=== PATIENT | male | born 2000 | race Hispanic/Latino ===

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

== ENCOUNTER → 2023-05-11 | Emergency (ER) | payer SELFPAY ==
[~2023-05-11] MED LIST: AMOX/K CLAV 875 MG TAB ONE; HYDROCODONE/APAP 5/325 MG TAB ONE
--- OUTSIDE RECORDS SUMMARY | 2023-05-11 22:48 | XMS REPORT | Continuity of Care Document ---
Author Name Unknown Address [address] [facility] [place] [address] [facility] thconnect Address [address] [facility] [address] [place] [address] Care Team Providers Care Hearing Care Practitioner Name Role Phone PCP, PATIENT DOES NOT HAVE A Primary Care Physic sherman Unavailable ELE MACARIO Attending Clinician Unavailabl e Doctor Unassigned, [place] Attending Clinician U MIRACLE Gutierrez Attending Clinician Unavail able DIMITRI PAZ Attending Clinician Unavailable Dimitri Paz MD Attending Clinician Payers Payer Name Policy Type Policy Number Effective Date Expirati on Date Source [employer] MEDICAID [id number] 2018 00:00:00 Problems Condition Name Condition Details Condition Category Status Onset Date Resolution Date Last Treatment Date Treating Clinician Comments Source 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 Disease Active 05-17 00:00: 00 [facility] Closed displaced fracture of base of fifth metacarpal bone of right hand with malunion Closed displaced fracture of base of fifth metacarpal bone of right hand with malunion Disease Active 05-17 00:00: 00 [facility] Allergies, Adverse Reactions, Alerts Allergy Name Allergy Type Status Severity Reaction(s) Onset Date Inactive Date Treating Clinician Comments Source NO KNOWN ALLERGIE S Drug Class Active [facility] Social History Social Habit Start Date Stop Date Quantity Comments Source Exposure to SARS-CoV-2 (event) [facility] sure [facility] 2000 [facility]00 2000 00:00:00 [facility] Smoking Status Start Date Stop Date Source Unknown if ever smoked [facility] Medications Ordered Medication Name Filled Medication Name Start Date Stop Date Current Medication? Ordering Clinician Indication Dosage Frequency Signature (SIG) Comments Components Source No known medications 05-17 16:51: 18 No [facility] No known medications [facility] No [facility] No known medications No Un rachana [facility] No known medications [facility] No Un rachana [facility] Vital Signs Vital Name Observation Time Observation Value Comments S ourariana Systolic blood pressure 2020-05-17 21:30:00 104 mm[Hg] [facility] Diastolic blood pressure 2020-05-17 21:30:00 51 mm[Hg] [facility] Heart rate 2020-05-17 21:30:00 63 /min [facility] Body temperature 2020-05-17 21:30:00 36.89 Bernice [facility] Respiratory rate 2020-05-17 21:30:00 16 /min [facility] Body height 2020-05-17 21:30:00 165.1 cm [facility] Body weight 2020-05-17 21:30:00 95.618 kg [facility] BMI 2020-05-17 21:30:00 35.08 kg/m2 [facility] Procedures Procedure Date / Time Performed Performing Clinicia n Source REFERRAL- REQUEST/RESPONSE 2021-02-12 05:01:00 Doctor Unassigned, [place] [facility] XR WRIST 3+ VW LEFT 2020-05-17 21:19:48 Dimitri Paz [facility] XR WRIST 3+ VW RIGHT 2020-05-17 21:19:00 Trever Paz [facility] Encounters Start Date/Time End Date/Time Encounter Type Admission Type Attending Clinicians Care Facility Care Department Encounter ID Source 2022-12-08 10:52:05 2022-12-08 10:52:05 Outpatient [facility] [id number] Jerman Werner 2021-03-11 10:40:00 2021-03-11 10:40:00 Outpatient ELE ESCALERA [facility] [id number] [facility] 2021-02-12 00:00:00 2021-02-12 00:00:00 Orders Only Doctor Unassigned, [place] [facility] [id number] [facility] 2020-10-11 13:00:00 2020-10-11 13:00:00 Outpatient MIRACLE WALTERS [facility] [id number] [facility] 2020-05-21 00:00:00 2020-05-21 00:00:00 Outpatient DIMITRI SCHROEDER [facility] [id number] [facility] 2020-05-17 15:02:38 2020-05-17 23:59:00 Hospital Encounter [facility] 1..[id number] [facility] 2020-05-17 15:02:38 2020-05-17 23:59:00 Outpatient DIMITRI SCHROEDER [facility] [id number] [facility] 2020-05-17 15:02:14 2020-05-17 23:59:00 Hospital Encounter Dimitri Paz [facility] [id number] [facility] 2020-05-17 15:22:04 2020-05-17 15:37:04 [facility] [id number] [facility] Results Test Description Test Time Test Comments Results Resul t Comments Source XR WRIST 3+ VW RIGHT 2020-05-03 5 22:04:51 FINDINGS/IMPRESSIO N: Radiographs of the bilateral wrists demonstrate cortical irregularity anddeformity involving the bases of the fourth and fifth metacarpals on theright side, in which fractures of indeterminate age are of concern.Clinical correlation is recommended. Otherwise, no acute fractures or dislocations. Joint spaces are preserved.Alignmen t is within normal limits. The soft tissues are unremarkable. Preliminary Report Dictated by Resident: Alan Pizarro MD., have reviewed this study and agree with theabove report.EXAM: XR WRIST 3+ VW LEFT, XR WRIST 3+ VW RIGHT HISTORY: Pain in wrist, unspecified laterality [M25.539 (ICD-10-CM)] COMPARISON: None. [facility], Radiant Results Inft User - 05/17/2020 4:06 PM CSTEXAM: XR WRIST 3+ VW LEFT, XR WRIST 3+ VW RIGHTHISTORY: Pain in wrist, unspecified laterality [M25.539 (ICD-10-CM)]COMPAR MATTHEW: None.IMPRESSIONFIN DINGS/IMPRESSION: Radiographs of the bilateral wrists demonstrate cortical irregularity anddeformity involving the bases of the fourth and fifth metacarpals on theright side, in which fractures of indeterminate age are of concern.Clinical correlation is recommended.Otherw ise, no acute fractures or dislocations. Joint spaces are preserved.Alignmen t is within normal limits. The soft tissues are unremarkable.Preli minary Report Dictated by Resident: Alan Major MD., have reviewed this study and agree with theabove report. [facility] XR WRIST 3+ VW LEFT 2020-05-03 5 22:04:51 FINDINGS/IMPRESSIO N: Radiographs of the bilateral wrists demonstrate cortical irregularity anddeformity involving the bases of the fourth and fifth metacarpals on theright side, in which fractures of indeterminate age are of concern.Clinical correlation is recommended. Otherwise, no acute fractures or dislocations. Joint spaces are preserved.Alignmen t is within normal limits. The soft tissues are unremarkable. Preliminary Report Dictated by Resident: Alan Pizarro MD., have reviewed this study and agree with theabove report.EXAM: XR WRIST 3+ VW LEFT, XR WRIST 3+ VW RIGHT HISTORY: Pain in wrist, unspecified laterality [M25.539 (ICD-10-CM)] COMPARISON: None. [facility], Radiant Results Inft User - 05/17/2020 4:06 PM CSTEXAM: XR WRIST 3+ VW LEFT, XR WRIST 3+ VW RIGHTHISTORY: Pain in wrist, unspecified laterality [M25.539 (ICD-10-CM)]COMPAR MATTHEW: None.IMPRESSIONFIN DINGS/
--- NOTE | 2023-05-11 22:56 | EDPHYS ---
Physician Documentation [facility] Name: Zak Godfrey Age: 22 yrs Sex: Male : 2000 Arrival Date: 05/11/2023 Time: 22:44 Bed Waiting Private MD: ED Physician Scot Rosenberg HPI: 05/11 23:01 This 22 yrs old Male presents to ER via Ambulatory with complaints of kb Congestion, Ear Pain, Drainage From Ear, Cough. 23:01 Pt is a 22 year old male who presents with sore throat and bilateral ear pain. States kb he has had cough, congestion, sore throat and fever for 4 days and most of the symptoms have resolved. Still has the sore throat and today developed bilateral ear pain which prompted his ER visit. . Historical: - Allergies: 22:52 No Known Allergies; rv - PMHx: 22:52 None; rv - PSHx: 22:52 None; rv - Immunization history:: Adult Immunizations up to date. - Social history:: Smoking status: Patient denies any tobacco usage or history of. ROS: 23:00 Constitutional: Negative for fever, chills, and weight loss, kb 23:00 ENT: Positive for ear pain, sore throat, 23:00 All other systems are negative, Exam: 23:00 Constitutional: This is a well developed, well nourished patient who is awake, alert, kb and in no acute distress. Head/Face: Normocephalic, atraumatic. Cardiovascular: Regular rate Respiratory: Respirations even and unlabored. No increased work of breathing. Talking in full sentences Abdomen/GI: Soft, non-tender. No distention Skin: Warm, dry with normal turgor. Normal color. MS/ Extremity: Pulses equal, no cyanosis. Neurovascular intact. Full, normal range of motion. Neuro: Awake and alert, GCS 15, oriented to person, place, time, and situation. Moves all extremities. Normal gait. 23:00 ENT: External ear(s): are unremarkable, Ear canal(s): are normal, TM's: bulging, bilaterally, erythema, that is moderate, bilaterally, Posterior pharynx: is normal, Vital Signs: 22:51 BP 144 / 100; Pulse 83; Resp 17; Temp 98.4; Pulse Ox 100% ; Weight 95.25 kg; Height 5 rv ft. 7 in. ; 22:51 Body Mass Index 32.89 (95.25 kg, 170.18 cm) rv MDM: 22:51 Patient medically screened. kb 23:01 Differential diagnosis: otitis media, otitis externa, ruptured TM, foreign body, acute kb otalgia. Data reviewed: vital signs, nurses notes. Test considered but Not performed: Labs: flu and covid tests considered, but result would not change plan of care. Counseling: I had a detailed discussion with the patient and/or guardian regarding the historical points, exam findings, and any diagnostic results supporting the discharge/admit diagnosis, the need for outpatient follow up, a family practitioner, to return to the emergency department if symptoms worsen or persist or if there are any questions or concerns that arise at home. Administered Medications: 23:00 Drug: HYDROcodone-acetaminophen PO 5 mg-325 mg 1 tabs PO once Route: PO; rv 23:00 Follow up: Response: Medication administered at discharge. rv 23:00 Drug: Amoxicillin-Clavulanate PO 875 mg PO once Route: PO; rv 23:00 Follow up: Response: Medication administered at discharge. rv Disposition Summary: 05/11/23 22:55 Discharge Ordered Notes: Location: Home kb Condition: Stable kb Diagnosis - Otitis media, unspecified, bilateral kb Followup: kb - With: Emergency Department - When: As needed - Reason: Worsening of condition Followup: kb - With: Private Physician - When: 2 - 3 days - Reason: Recheck today's complaints, Continuance of care, Re-evaluation by your physician Discharge Instructions: - Discharge Summary Sheet kb - Otitis Media, Pediatric, [id number] kb Forms: - Medication Reconciliation Form kb - Thank You Letter kb - Antibiotic Education kb - Prescription Opioid Use kb - Patient Portal Instructions kb - Leadership Thank You Letter kb Prescriptions: - Augmentin 875-125 mg Oral Tablet - take 1 tablet ORAL route every 12 hours for 10 days; 20 tablet; Refills: 0, kb Product Selection Permitted Signatures: Clau Finley FNP-C FNP-Shaggy Oconnor, RN RN rv
--- NOTE | 2023-05-11 22:56 | ER ---
Nurse's Notes [facility] Name: Zak Godfrey Age: 22 yrs Sex: Male : 2000 Arrival Date: 05/11/2023 Time: 22:44 Bed Waiting Private MD: Diagnosis: Otitis media, unspecified, bilateral Presentation: 05/11 22:51 Chief complaint: Patient states: ear pain and sore throat for a few days now, with rv fever. Coronavirus screen: At this time, the client does not indicate any symptoms associated with coronavirus-19. Ebola Screen: No symptoms or risks identified at this time. Initial Sepsis Screen: Does the patient meet any 2 criteria? No. Patient's initial sepsis screen is negative. Does the patient have a suspected source of infection? No. Patient's initial sepsis screen is negative. Risk Assessment: Do you want to hurt yourself or someone else? Patient reports no desire to harm self or others. Onset of symptoms was May 11, 2023. 22:51 Method Of Arrival: Ambulatory rv 22:51 Acuity: SUZIE 4 rv Triage Assessment: 22:52 General: Appears comfortable, Behavior is calm, cooperative. Pain: Complains of pain in rv ear, bilateral. EENT: Tympanic membrane infected. Cardiovascular: Capillary refill < 3 seconds Patient's skin is warm and dry. Respiratory: Airway is patent Respiratory effort is even, unlabored. GI: No signs and/or symptoms were reported involving the gastrointestinal system. : No signs and/or symptoms were reported regarding the genitourinary system. Derm: Skin is intact. Historical: - Allergies: 22:52 No Known Allergies; rv - PMHx: 22:52 None; rv - PSHx: 22:52 None; rv - Immunization history:: Adult Immunizations up to date. - Social history:: Smoking status: Patient denies any tobacco usage or history of. Screenin:53 [facility] ED Fall Risk Assessment (Adult) History of falling in the last 3 months, rv including since admission No falls in past 3 months (0 pts) Score/Fall Risk Level 0 - 2 = Low Risk Oriented to surroundings, Maintained a safe environment, Educated pt \T\ family on fall prevention, incl call for assistance when getting out of bed, Assessed \T\ reinforced patient's understanding of fall precautions. Abuse screen: Denies threats or abuse. Denies injuries from another. Nutritional screening: No deficits noted. Tuberculosis screening: No symptoms or risk factors identified. Vital Signs: 22:51 BP 144 / 100; Pulse 83; Resp 17; Temp 98.4; Pulse Ox 100% ; Weight 95.25 kg; Height 5 rv ft. 7 in. ; 22:51 Body Mass Index 32.89 (95.25 kg, 170.18 cm) rv ED Course: 22:48 Patient arrived in ED. [id number] 22:51 Clau Finley FNP-C [facility]. kb 22:51 Scot Rosenberg MD is Attending Physician. kb 22:52 Triage completed. rv 22:52 Arm band placed on right wrist. rv 22:53 Patient has correct armband on for positive identification. Client placed on continuous rv cardiac and pulse oximetry monitoring. NIBP monitoring applied. 22:53 No provider procedures requiring assistance completed. Patient did not have IV access rv during this emergency room visit. Administered Medications: 23:00 Drug: HYDROcodone-acetaminophen PO 5 mg-325 mg 1 tabs PO once Route: PO; rv 23:00 Follow up: Response: Medication administered at discharge. rv 23:00 Drug: Amoxicillin-Clavulanate PO 875 mg PO once Route: PO; rv 23:00 Follow up: Response: Medication administered at discharge. rv Medication: 22:53 VIS not applicable for this client. rv Outcome: 22:55 Discharge ordered by MD. kb 23:00 Discharged to home ambulatory, rv 23:00 Condition: good 23:00 Discharge instructions given to patient, Instructed on discharge instructions, follow up and referral plans. medication usage, Demonstrated understanding of instructions, follow-up care, medications, Prescriptions given X 1, 23:00 Patient left the ED. rv Signatures: Clau Finley FNP-C FNP-Ckb Vicente, Ronaldo, RN RN rv Monique Du [id number]
[2023-05-12 02:40] VITALS: BP 144/100; TEMP 98.4; O2SAT 100
== END ==
LOC: ER 22:44
DX: H66.93 Otitis media, unspecified, bilateral (principal)
CPT/HCPCS: 99283